=== PATIENT | female | born 1990 | race African-American/Black ===

== ENCOUNTER 2019-03-20 03:06 | Inpatient (IN) | payer MEDICAID ==
[~2019-03-20] VITALS: Ht 157.5 cm; Wt 95.7 kg
[2019-03-20] MEDS: LIDOCAINE HCL 1% 20ML VIAL (Pyxis) INJ INFIL SCH (02:00)
[2019-03-20] MEDS ORDERED: LACTATED RINGERS 1,000 ML IV STA (03:25)
[2019-03-20] MEDS ORDERED: MAGNESIUM 20 G PREMIX (L & D) 500 ML IV SCH ×2 (03:29→05:45)
[2019-03-20] MEDS ORDERED: MAGNESIUM 2 G PREMIX 50 ML IV SCH (03:30)
[2019-03-20] MEDS ORDERED: AMPICILLIN 2,000 MG in SODIUM CHLORIDE 0.9% 100 ML IV SCH (03:30)
[2019-03-20] MEDS ORDERED: BETAMETHASONE ACET/BETAMET 30 MG/5 ML VIAL IM SCH ×2 (03:30→16:00)
[2019-03-20 03:55] LABS: CLARITY URINE CLEAR (CLEAR); COLOR URINE YELLOW (YELLOW); KETONES URINE TRACE (NEGATIVE); LEUKOCYTE ESTERASE URINE 2+ (NEGATIVE); NITRITE URINE NEGATIVE (NEGATIVE); OCCULT BLOOD URINE NEGATIVE (NEGATIVE); PROTEIN URINE NEGATIVE (NEGATIVE); SPECIFIC GRAVITY URINE 1.008 (1.005-1.030); UROBILINOGEN URINE 0.2 E.U./dL (0.2-1.0)
[2019-03-20 03:58] LABS: BASOPHILS % 0.6 % (0.0-2.0); EOSINOPHILS % 0.1 % (0.0-5.0); HEMATOCRIT. 31.6 % (36.0-48.0); HEMOGLOBIN. 10.6 g/dL (12.0-16.0); MEAN CORPUSCULAR HEMOGLOBIN 28.6 pg (28.0-32.0); MEAN CORPUSCULAR VOLUME 84.9 fL (81.0-99.0); MEAN PLATELET VOLUME 10.4 fl (7.4-10.4); MONOCYTES % 8.3 % (2.0-8.0); PLATELET 133 x1000/uL (130-400); RED BLOOD CELL COUNT 3.72 mill/uL (4.2-5.4)
[2019-03-20 04:02] LABS: *AMPHETAMINES SCREEN URINE NEGATIVE (NEGATIVE); *BARBITURATES SCREEN URINE NEGATIVE (NEGATIVE); *BENZODIAZEPINES SCREEN URINE NEGATIVE (NEGATIVE)
[2019-03-20 04:03] LABS: *COCAINE SCREEN URINE NEGATIVE (NEGATIVE); METHADONE URINE SCREEN NEGATIVE (NEGATIVE); OPIATES URINE SCREEN NEGATIVE (NEGATIVE); PHENCYCLIDINE URINE SCREEN NEGATIVE (NEGATIVE)
[2019-03-20 04:06] LABS: CANNABINOID URINE SCREEN PRESUMTIVE POSITIVE (NEGATIVE)
[2019-03-20 04:24] LABS: PROTHROMBIN TIME 9.9 sec (9.6-11.0)
[2019-03-20] MEDS ORDERED: BUTORPHANOL TARTRATE 2 MG/ML VIAL IV NR (05:00)
[2019-03-20 05:18] LABS: HEPATITIS B SURFACE ANTIGEN NEGATIVE
[2019-03-20] MEDS ORDERED: BUTORPHANOL TARTRATE 2 MG/ML VIAL IM PRN (08:45)
[2019-03-20] MEDS ORDERED: DEXT 5%/LR + PITOCIN 20UNITS/L 1,000 ML IV SCH (08:46)
[2019-03-20] MEDS ORDERED: BUTORPHANOL TARTRATE 2 MG/ML VIAL IV PRN (09:00)
[2019-03-20] MEDS ORDERED: METHYLERGONOVINE MALEATE 0.2 MG/ML IM PRN (09:00)
[2019-03-20] MEDS ORDERED: CARBOPROST TROMETHAMINE 250 MCG/ML AMPUL IM PRN (09:00)
[2019-03-20] MEDS ORDERED: NALOXONE HCL 0.4 MG/ML 1ML VIAL IM PRN (09:00)
[2019-03-20] MEDS: AMPICILLIN 1,000 MG in SODIUM CHLORIDE 0.9% 50 ML IV SCH ×3 (10:22→22:15)
[2019-03-20] MEDS ORDERED: ROPIVACAINE HCL/PF EPIDURAL 200 ML EPI SCH (12:15)
[2019-03-20] MEDS: LACTATED RINGERS 1,000 ML IV SCH (15:25)
[2019-03-21] MEDS: AMPICILLIN 1,000 MG in SODIUM CHLORIDE 0.9% 50 ML IV SCH ×3 (04:10→10:30)
[2019-03-21] MEDS: LACTATED RINGERS 1,000 ML IV SCH (06:20)
[2019-03-21] MEDS ORDERED: AMPICILLIN 1,000 MG in SODIUM CHLORIDE 0.9% 50 ML IV SCH (16:30)
[2019-03-21] MEDS ORDERED: LACTATED RINGERS 1,000 ML IV SCH (17:31)
[2019-03-21] MEDS ORDERED: DEXT 5%/LR + PITOCIN 20UNITS/L 1,000 ML IV SCH ×2 (17:31→20:21)
[2019-03-21] MEDS ORDERED: BUTORPHANOL TARTRATE 2 MG/ML VIAL IV PRN (17:39)
[2019-03-21] MEDS ORDERED: MISOPROSTOL 100MCG TABLET VG SCH (17:45)
[2019-03-21] MEDS ORDERED: METHYLERGONOVINE MALEATE 0.2 MG/ML IM PRN (17:45)
[2019-03-21] MEDS ORDERED: CARBOPROST TROMETHAMINE 250 MCG/ML AMPUL IM PRN (17:45)
[2019-03-21] MEDS ORDERED: LIDOCAINE HCL 1% 20ML VIAL (Pyxis) INJ INFIL SCH (17:45)
[2019-03-21] MEDS ORDERED: NALOXONE HCL 0.4 MG/ML 1ML VIAL IM PRN (17:45)
[2019-03-21] MEDS ORDERED: LIDOCAINE HCL 1% 20ML VIAL (Pyxis) INJ INFIL NR (19:30)
[2019-03-21] MEDS: LIDOCAINE HCL 1% 20ML VIAL (Pyxis) INJ INFIL SCH (20:10)
[2019-03-21] MEDS ORDERED: RHO(D) IMMUNE GLOBULIN 300 MCG/SYR IM PRN (20:30)
[2019-03-21] MEDS ORDERED: IBUPROFEN 400MG TABLET PO PRN (20:30)
[2019-03-21] MEDS ORDERED: BENZOCAINE/LANOLIN/ALOE VERA SPRAY TOP PRN (20:30)
[2019-03-21] MEDS: IBUPROFEN 800MG TABLET PO PRN (21:28)
[2019-03-21 21:45] VITALS: BP 112/68
[2019-03-21 22:00] VITALS: BP 122/70
[2019-03-21 22:30] VITALS: BP 126/62
[2019-03-22] MEDS: IBUPROFEN 800MG TABLET PO PRN ×3 (05:13→18:32)
[2019-03-22 05:14] VITALS: BP 100/54
[2019-03-22 06:24] LABS: BASOPHILS % 0.2 % (0.0-2.0); HEMATOCRIT. 33.4 % (36.0-48.0); HEMOGLOBIN. 11.2 g/dL (12.0-16.0); LYMPHOCYTES % 10.7 % (20.0-50.0); MEAN CORPUSCULAR HEMOGLOBIN 28.6 pg (28.0-32.0); MEAN CORPUSCULAR VOLUME 84.9 fL (81.0-99.0); MONOCYTES % 9.5 % (2.0-8.0); NEUTROPHILS % 79.6 % (40.0-76.0); PLATELET 167 x1000/uL (130-400); RED BLOOD CELL COUNT 3.93 mill/uL (4.2-5.4); RED CELL DISTRIBUTION WIDTH 14.4 % (11.6-14.6)
[2019-03-22 08:00] VITALS: BP 123/63
[2019-03-22] MEDS ORDERED: LANOLIN OINT 7GM TUBE TOP PRN (10:30)
[2019-03-22 15:46] VITALS: BP 108/66
[2019-03-22 21:00] VITALS: BP 120/61
[2019-03-23 04:10] VITALS: BP 111/69
[2019-03-23] MEDS: IBUPROFEN 800MG TABLET PO PRN (04:19)
[2019-03-23] MEDS ORDERED: FERR325T6 MT (07:05)
[2019-03-23] MEDS ORDERED: MULT-1146 MT (07:05)
[2019-03-23] MEDS ORDERED: HYDR26CR TP (07:05)
[2019-03-23] MEDS ORDERED: IBUP-2030 MT (07:05)
[2019-03-23 07:30] VITALS: BP 122/76
[2019-03-24 13:11] LABS: CANNABINOID CONFIRMATION URINE Positive (.)
== END 2019-03-23 09:00 | disposition home or self-care (01) | DRG 560 ==
LOC: 8 EST LDRP 03:06 → OBSVTOIN 03:06 → 8 EST LDRP 10:56 → 8WST 03-21 21:39 → 8EST 03-21 22:11
PROVIDERS: ADMIT Obstetrics & Gynecology; ATTEND Obstetrics & Gynecology
PROC: 10E0XZZ Delivery of Products of Conception, External Approach (ICD-10-PCS; principal; 2019-03-21)
PROC: 0KQM0ZZ Repair Perineum Muscle, Open Approach (ICD-10-PCS; 2019-03-21)
DX: O60.14X0 Preterm labor third trimester with preterm delivery third trimester, not applicable or unspecified (principal); O99.324 Drug use complicating childbirth; O22.43 Hemorrhoids in pregnancy, third trimester; O42.913 Preterm premature rupture of membranes, unspecified as to length of time between rupture and onset of labor, third trimester; O70.1 Second degree perineal laceration during delivery; F12.10 Cannabis abuse, uncomplicated; Z3A.31 31 weeks gestation of pregnancy; Z37.0 Single live birth
CPT/HCPCS: 36415; 76805; 76818; 80305; 80349; 81003; 83735; 86592; 86703; 86762; 86850; 86900; 87340; 99281; G0378; J0290; J0595; J0702; J2310; J2590; J3475; J3490; J7050; J7120; A4315